=== PATIENT | male | born 1990 | race Caucasian/White ===

== ENCOUNTER 2019-06-21 09:09 | Emergency (ER) | payer SELFPAY ==
--- NOTE | 2019-06-21 10:32 | ER Document Report ---
ED Medical Screen (RME) - General Chief Complaint: Psych Problem Stated Complaint: PSYCH EVAL Time Seen by Provider: 06/21/19 10:18 Notes: Patient is a 29-year-old male who presents emergency department with a chief complaint of body aches and depression. Patient reports over the past 24 hours he was recently exposed to the influenza virus and he has had body aches and weakness. Patient reports he did vomit 3 times this morning. Patient reports a cough. Patient denies diarrhea or fever. [id number] is at the patient's side in triage and states the patient texted him this morning stating that he was thinking about ending his life today. Patient does admit to this. Patient reports that he does not have a specific plan and would never actually hurt himself because he knows he has "a lot of life to live and would not want to hurt his family." [id number]-sw-[id number] states that this is the third time in the past month that the patient has expressed concern about his depression and "a cry for help." Patient denies suicidal attempt in the past. Patient reports that he is having a tough time fixing his problems. Patient recently had a friend who committed suicide about 2 weeks ago. Patient reports at times "he feels like he cannot do nothing right." TRAVEL OUTSIDE OF THE [place] IN LAST 30 DAYS: No - Related Data Allergies/Adverse Reactions: No Known Allergies Allergy (Verified 05/11/16 08:05) Past Medical History - Social History Drug Abuse: Marijuana Renal/ Medical History: Reports: Hx Kidney Stones Physical Exam - Vital signs Vitals: Temp Pulse Resp BP Pulse Ox 98.2 F 98 16 149/94 H 100 06/21/19 09:13 06/21/19 09:13 06/21/19 09:13 06/21/19 09:13 06/21/19 09:13 - Psychological Associated symptoms: Normal affect Course - Re-evaluation Re-evalutation: 06/21/19 10:32 We will initiate a psychiatric work-up as well as test for influenza. I have greeted and performed a rapid initial assessment of this patient. A comprehensive ED assessment and evaluation of the patient, analysis of test results and completion of the medical decision making process will be conducted by additional ED providers. - Vital Signs Vital signs: Temp Pulse Resp BP Pulse Ox 98.2 F 98 16 149/94 H 100 06/21/19 09:13 06/21/19 09:13 06/21/19 09:13 06/21/19 09:13 06/21/19 09:13
[2019-06-21 10:45] LABS: ABSOLUTE BASOPHILS # (AUTO) 0.1 10^3/uL (0.0-0.2); ABSOLUTE EOSINOPHILS # (AUTO) 0.2 10^3/uL (0.0-0.6); ABSOLUTE MONOCYTES (AUTO) 0.8 10^3/uL (0.1-1.4); ABSOLUTE NEUT (AUTO) 6.1 10^3/uL (1.7-8.2); BASOPHILS % (AUTO) 1.3 % (0-2); HEMATOCRIT 46.3 % (37.9-51.0); HEMOGLOBIN 16.3 g/dL (13.5-17.0); LYMPHOCYTES % (AUTO) 11.8 % (13-45); MEAN CORPUSCULAR HEMOGLOBIN 32.4 pg (27.0-33.4); MEAN CORPUSCULAR HGB CONC 35.1 g/dL (32.0-36.0); MEAN CORPUSCULAR VOLUME 92 fl (80-97); MONOCYTES % (AUTO) 9.7 % (3-13); PLATELET COUNT 222 10^3/uL (150-450); RED BLOOD COUNT 5.03 10^6/uL (4.35-5.55); RED CELL DISTRIBUTION WIDTH 13.4 % (11.5-14.0); SEGMENTED NEUTROPHILS % (AUTO) 75.2 % (42-78); TOTAL CELLS COUNTED % (AUTO) 100 %; WHITE BLOOD COUNT 8.1 10^3/uL (4.0-10.5)
[2019-06-21 11:12] LABS: ALBUMIN 4.6 g/dL (3.5-5.0); ALKALINE PHOSPHATASE 64 U/L (38-126); ANION GAP 9 (5-19); ASPARTATE AMINO TRANSFERASE 27 U/L (17-59); BILIRUBIN,TOTAL 0.3 mg/dL (0.2-1.3); BLOOD UREA NITROGEN 13 mg/dL (7-20); CALCIUM 9.9 mg/dL (8.4-10.2); CARBON DIOXIDE 29 mmol/L (22-30); CHLORIDE 102 mmol/L (98-107); GLUCOSE 92 mg/dL (75-110); POTASSIUM 4.5 mmol/L (3.6-5.0); TOTAL PROTEIN 7.6 g/dL (6.3-8.2)
[2019-06-21 11:20] LABS: ACETAMINOPHEN < 10 ug/mL (10-30); ALCOHOL < 10 mg/dL (NONE DETECTED); SALICYLATE < 1.0 mg/dL (2.0-20.0)
[2019-06-21 11:59] LABS: A TYPE INFLUENZA AG NEGATIVE (NEGATIVE); B INFLUENZA AG NEGATIVE (NEGATIVE)
[2019-06-21] MEDS ORDERED: ONDANSETRON 4 MG TAB.RAPDIS PO ONE (12:19)
--- NOTE | 2019-06-21 12:20 | ER Document Report ---
ED Medical Screen (RME) - General Chief Complaint: Psych Problem Stated Complaint: PSYCH EVAL Time Seen by Provider: 06/21/19 10:18 TRAVEL OUTSIDE OF THE [place] IN LAST 30 DAYS: No - Related Data Allergies/Adverse Reactions: No Known Allergies Allergy (Verified 05/11/16 08:05) Past Medical History - Social History Drug Abuse: Marijuana Renal/ Medical History: Reports: Hx Kidney Stones Physical Exam - Vital signs Vitals: Temp Pulse Resp BP Pulse Ox 98.2 F 98 16 149/94 H 100 06/21/19 09:13 06/21/19 09:13 06/21/19 09:13 06/21/19 09:13 06/21/19 09:13 Course - Vital Signs Vital signs: Temp Pulse Resp BP Pulse Ox 98.2 F 98 16 149/94 H 100 06/21/19 09:13 06/21/19 09:13 06/21/19 09:13 06/21/19 09:13 06/21/19 09:13 - Laboratory Result Diagrams: 06/21/19 10:32 06/21/19 10:32 Laboratory results interpreted by me: 06/21/19 06/21/19 10:32 10:32 Lymph % (Auto) 11.8 L Salicylates < 1.0 L Acetaminophen < 10 L
--- NOTE | 2019-06-21 12:51 | ER Document Report ---
ED General - General Chief Complaint: Psych Problem Stated Complaint: PSYCH EVAL Time Seen by Provider: 06/21/19 10:18 TRAVEL OUTSIDE OF THE [place] IN LAST 30 DAYS: No - HPI Notes: 29-year-old male to the emergency department with 2 complaints today. First complaint is that he has been having flulike symptoms since last night. [place] a stranger came up to him and interacted with him. Apparently the stranger had a runny nose nasal congestion and the patient was informed by that strangers mother that he has the flu. He states that later that evening he started to feel poorly and began with cough and runny nose. He took NyQuil and slept well but woke up this morning feeling worse. He states he vomited 3 times and continues to have nasal congestion and cough. He states he has not had a fever. He states he is concerned he has the flu. He states that he did take DayQuil today and that seems to have helped him a little bit. He has a secondary complaint of depression and "worrying a lot about the future. Apparently this morning he reached out to his family via text message and told them that he wanted to end his life. He tells me today in the emergency department that he has been struggling but he does not want to end his life. He states that "I should not have sent that message". He also states that he feels like he has a lot to live for but he is just burdened by the unknown of his future. In particular he is very concerned about what will happen to his parents and himself after they . Currently his parents are healthy and doing well so he is not exactly sure why he is so concerned about what will happen after they . He denies any hallucinations or homicidal ideation. - Related Data Allergies/Adverse Reactions: No Known Allergies Allergy (Verified 05/11/16 08:05) Past Medical History - General Information source: Patient - Social History Smoking Status: Current Every Day Smoker Frequency of alcohol use: None Drug Abuse: Marijuana Lives with: Family Family History: Reviewed & Not Pertinent Patient has suicidal ideation: No Patient has homicidal ideation: No Renal/ Medical History: Reports: Hx Kidney Stones Review of Systems - Review of Systems Constitutional: Chills. denies: Fever EENT: See HPI, Nose congestion Cardiovascular: denies: Chest pain, Palpitations, Heart racing, Dyspnea, Syncope, Dizziness, Lightheaded Respiratory: See HPI, Cough. denies: Short of breath Gastrointestinal: See HPI, Nausea, Vomiting. denies: Abdominal pain, Diarrhea Musculoskeletal: Muscle pain - Patient reports body aches Skin: denies: Rash Neurological/Psychological: No symptoms reported -: Yes All other systems reviewed and negative Physical Exam - Vital signs Vitals: Temp Pulse Resp BP Pulse Ox 98.2 F 98 16 149/94 H 100 06/21/19 09:13 06/21/19 09:13 06/21/19 09:13 06/21/19 09:13 06/21/19 09:13 - General General appearance: Appears well, Alert In distress: None Notes: Patient initially sleeping when I first entered his room. He awakens with light touch. Noted that he has a left cochlear implant - HEENT Head: Normocephalic, Atraumatic Eyes: Normal Pupils: PERRL Ears: Other - Left cochlear implant External canal: Normal Tympanic membrane: Normal Sinus: Normal Nasal: Clear rhinorrhea Mouth/Lips: Normal Mucous membranes: Normal Pharynx: Normal Neck: Normal, Supple. No: Lymphadenopathy, Meningismus - Respiratory Respiratory status: No respiratory distress Chest status: Nontender. No: Accessory muscle use Breath sounds: Normal. No: Rales, Rhonchi, Wheezing Chest palpation: Normal - Cardiovascular Rhythm: Regular Heart sounds: Normal auscultation Murmur: No - Abdominal Inspection: Normal Distension: No distension Bowel sounds: Normal Tenderness: Nontender. 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 No: Pronator drift Sensory: Normal - Psychological Associated symptoms: Normal affect, Normal mood Notes: Patient admits to depression. He does also admit that he sent text message to his family this morning stating that he wanted to end his life. He vehemently states he does not want to end his life but he is very uncertain about his future and that is getting him down. He also admits to anxious thoughts about what will become of him once his parents . He is very forthcoming with his feelings and makes good eye contact. He denies a specific plan. He denies HI or hallucinations. He has linear thought process. And he is not responding to any internal stimuli. - Skin Skin Temperature: Warm Skin Moisture: Dry Skin Color: Normal Course - Re-evaluation Re-evalutation: 06/21/19 Spoke with behavioral health team. They will plan to petition for IVC for 24- hour hold. Patient has been made aware. 06/22/19 00:11 Patient has been resting quietly in her emergency department this evening and today. He continues to be on IVC petition and will be evaluated again by behavioral health in the morning. Turned patient over to VIRAJ vazquez and she will continue to monitor him overnight. - Vital Signs Vital signs: Temp Pulse Resp BP Pulse Ox 98.0 F 66 20 126/68 H 99 06/21/19 18:19 06/21/19 18:19 06/21/19 18:19 06/21/19 18:19 06/21/19 18:19 - Laboratory Result Diagrams: 06/21/19 10:32 06/21/19 10:32 Laboratory results interpreted by me: 06/21/19 06/21/19 10:32 10:32 Lymph % (Auto) 11.8 L Salicylates < 1.0 L Acetaminophen < 10 L Discharge - Discharge Clinical Impression: Flu-like symptoms, Cough, Mood disorder, Suicidal ideation Condition: Stable Disposition: OTHER
[2019-06-21 13:24] LABS: APPEARANCE,URINE CLEAR; BILIRUBIN,URINE NEGATIVE (NEGATIVE); COLOR,URINE YELLOW; GLUCOSE, URINE NEGATIVE (NEGATIVE); KETONES,URINE NEGATIVE (NEGATIVE); LEUKOCYTE ESTERASE,URINE NEGATIVE (NEGATIVE); NITRITE,URINE NEGATIVE (NEGATIVE); PROTEIN,URINE NEGATIVE (NEGATIVE); URINE SPECIFIC GRAVITY 1.018; UROBILINOGEN,URINE NEGATIVE mg/dL (<2.0)
--- NOTE | 2019-06-21 13:28 | PSYCHOLOGICAL NOTE ---
Psych Note - Psych Note Date seen by psych provider: 06/21/19 Time seen by psych provider: 10:40 Psych Note: Reason for consult: Suicidal ideation Patient presented to [facility] ED with concerns that he is getting physically sick in addition to suicidal ideation. Patient reportedly texted his mother this morning that he wanted to . Patient denies having a plan however is very guarded and resistant to engaging with clinician. Patient requests a "second chance." He admits he had thoughts of harming himself about 6 months ago but has not engaged in any metal health services. He report He reports the thoughts of harming himself 6 months ago were "not as bad" as his current thoughts. Patient is very emotionally labile. He originally refuses to cooperate with [facility] ED staff to change out; however, he does consent after talking with clinician. Patient identifies both stress from family, stating that he feels unwanted, and has suffered the recent lost a a close friend to suicide 2 weeks ago. Patient is recommended for 24 hour petition for evaluation; evaluation is currently ongoing.
[2019-06-21 13:39] LABS: URINE AMPHETAMINES SCREEN NEGATIVE; URINE BARBITURATES SCREEN NEGATIVE; URINE BENZODIAZEPINES SCREEN NEGATIVE; URINE COCAINE SCREEN NEGATIVE; URINE METHADONE SCREEN NEGATIVE; URINE PHENCYCLIDINE SCREEN NEGATIVE
[2019-06-21 13:40] LABS: URINE MARIJUANA (THC) SCREEN UNCONFIRMED POSITIVE
--- NOTE | 2019-06-21 17:45 | PSYCHOLOGICAL NOTE ---
Psych Note - Psych Note Date seen by psych provider: 06/21/19 Time seen by psych provider: 14:45 Psych Note: Patient was informed he would be staying overnight on a 24 hour petition for evaluation. Patient became upset and demanding to leave. Patient reported he would "tear this place apart." Clinician reminded patient that would not change the plan and the emotional labially he is exhibiting is part of the impulsive behavior of concern. Patient reported he only sent the texts to his family because he was upset that his step father had fired him because he had the flu. Patient stated he wanted to "get back at my family." Clinician discussed how behavior has consequences. Patient attempted to deflect and minimize situation. Patient repeatedly informed clinician he was leaving. Clinician responded each time with, that is not happening. Clinician reoriented patient to the multiple text messages to family members in which he reported he had planned to commit suicide. Patient demanded to use the phone to report he is being held against his will to law enforcement. Clinician refused request and continued that phone call could be considered a misuse of -- resources as he was brought to the ED for treatment. Patient states his family told him he was being treated for the flu, not evaluated. Clinician utilized Rogerian techniques to offer empathetic support while maintaining firm boundaries. Patient was able to self soothe. Patient continues to minimize and deny.
--- NOTE | 2019-06-21 20:55 | EKG REPORT ---
SEVERITY:- ABNORMAL ECG - SINUS RHYTHM PROBABLE LEFT VENTRICULAR HYPERTROPHY : Confirmed by: Nu Colbert 21-Jun-2019 20:54:35
--- NOTE | 2019-06-22 10:49 | ER Document Report ---
Doctor's Note Notes: 06/22/19 10:48 29-year-old male brought in last night texting thoughts of hurting himself to his family members. Patient states he had been fired by his [id number] and became very angry. Patient has no physical complaints at this time. Patient is currently engaging with the psychiatric team. Denies thoughts of hurting himself at this time
[2019-06-22] MEDS ORDERED: IBUPROFEN 600 MG TABLET PO ONE (11:06)
[2019-06-22 12:45] VITALS: BP 142/88
[2019-06-22] MEDS ORDERED: CITALOPRAM HYDROBROMIDE 20 MG TABLET PO SCH (13:00)
--- NOTE | 2019-06-22 18:53 | PSYCHOLOGICAL NOTE ---
Psych Note - Psych Note Date seen by psych provider: 06/22/19 Time seen by psych provider: 10:30 Psych Note: Check in Conducted with patient with brother law at bedside. Patient expressed remorse for his behavior yesterday when advised of 24-hour petition for evaluation. Patient was engaged with clinician. Patient reaffirmed the text he sent to his mother and brother in law regarding SI was done in an attempt to manipulate family. Patient states he is agreeable to mental health services and verbalized insight of his need for emotion regulation skills. [id number] stated he did not believe patient was a danger to himself or others, and believed patient sent the text to himself and his mother in an attempt to "get attention." [id number] stated the family has been attempting to convince patient for approximately 6 months to see a mental health provider. Patient identified and asked his [id number] to be his plan of medicare compliance auditor, [id number] excepted. Medication recommendations per [facility] contracted psychiatrist Dr. Daryl MD are as follows: Celexa 20MG, daily Impression/Plan: Patient is recommended for rescind of IVC and is cleared from acute psychiatric services. Patient denies suicidal and homicidal ideations. There is no observed behavior that suggests patient is responding to internal stimuli. Patient engaged in organized, rational, linear thought processes and was able to express needs and wants in a logical manner. [id number]-wl-[id number] has agreed to be patient's plan of medicare compliance auditor which includes: Being responsible for medication management and administration, observing for signs of increased emotional distress, removing weapons from the home, facilitating and assisting with follow-up mental health appointments. Patient will be staying with [id number] for the next couple of days. Patient has mental health ap pointment with [facility] on 06/28/[address] Skaggs was consulted on the care and management of this patient; attending physician is in agreement with recommendations and disposition.
== END 2019-06-22 13:20 | disposition home or self-care (01) ==
LOC: ER 09:09
DX: M79.10 Myalgia, unspecified site (principal); F39 Unspecified mood [affective] disorder; F32.9 Major depressive disorder, single episode, unspecified; R53.1 Weakness; F17.200 Nicotine dependence, unspecified, uncomplicated; R45.851 Suicidal ideations; Z87.442 Personal history of urinary calculi
CPT/HCPCS: 36415; 80053; 80307; 81001; 85025; 87804; 93005; 93010; 99285